=== PATIENT | female | born 1990 | race Caucasian/White ===

== ENCOUNTER 2022-09-22 16:58 | Emergency (ER) | payer OTHER ==
[~2022-09-22] VITALS: Ht 152.4 cm; Wt 104.5 kg
[2022-09-22 17:03] VITALS: BP 135/97
[2022-09-22] MEDS ORDERED: HYDROcodone/acetaminophen 5mg/325mg tablet PO ONE (17:50)
[2022-09-22] MEDS ORDERED: HYDR-3965 PO (18:11)
--- NOTE | 2022-09-22 19:05 | NUR ---
pt was provided with crutches, and was instructed on how to use it. pt demonstrated understanding by using the crutches, and walked four steps forward, and four steps back. pt appeared to tolerate well.
== END 2022-09-22 19:08 | disposition home or self-care (01) ==
LOC: ER 16:59
DX: S82.842A Displaced bimalleolar fracture of left lower leg, initial encounter for closed fracture (principal); S92.352A Displaced fracture of fifth metatarsal bone, left foot, initial encounter for closed fracture; F17.200 Nicotine dependence, unspecified, uncomplicated; Z72.89 Other problems related to lifestyle; Z79.899 Other long term (current) drug therapy; W18.39XA Other fall on same level, initial encounter; Y93.89 Activity, other specified; Y92.89 Other specified places as the place of occurrence of the external cause; Y99.8 Other external cause status
CPT/HCPCS: 73610; 73630; 99284; A6446; A6449